=== PATIENT | male | born 1945 | race African-American/Black ===

== ENCOUNTER → 2017-02-10 | Outpatient (CLI) | payer MEDICARE, OTHER ==
[2014-07-20 11:00] VITALS: BP 139/75
--- NOTE | 2017-02-16 11:49 | SLEEP ---
DATE OF STUDY: 02/16/2017 ATTENDING PHYSICIAN: ____ Mathew. The patient is a 71-year-old who weighs 165 pounds with a BMI of 27. The patient's [place] score was 5. Sleep study was performed to rule out JANIS. This was a diagnostic study. During the night study, the patient spent 427 minutes in bed and slept for 197 minutes with a low sleep efficiency of 46%. Sleep latency was 25 minutes with an absent REM sleep. Overall, sleep architecture showed increased stage 1 and stage 2 sleep, normal slow wave and absent REM sleep. During the night study, the patient had 9 obstructive apneas. No mixed or central apneas. There were 43 hypopneas. The patient's apnea hypopnea index was 18 per hour. No REM sleep was observed. Supine AHI was also 18 per hour. Review of nocturnal oximetry study revealed a mean oxygen saturation of 96% with the lowest of 90%. PLMS were seen at index of 16 per hour, but only 1 per hour caused EEG arousals. EKG monitoring revealed average heart rate of 53 beats per minute, no sustained arrhythmias were observed. Due to poor sleep efficiency, split night protocol was not attempted. IMPRESSION: 1. Moderate sleep apnea-hypopnea syndrome with an AHI of 18 per hour. Absence of REM sleep can underestimate the severity of sleep apnea. 2. Reduced sleep efficiency of 46% due to sleep maintenance insomnia. 3. Mild to moderate periodic limb movements at an index of 16 per hour, but only 1 per hour caused EEG arousals. This does not need to be treated unless the patient has symptoms of restless legs during the day. RECOMMENDATIONS: 1. The patient should return to the sleep lab for CPAP titration. 2. Once optimum CPAP pressure is achieved, then follow up in 4-6 weeks to assess compliance with CPAP and to document clinical improvement. 3. 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 4. Caution regarding driving until the patient's sleep apnea is treated with the above recommendations. 5. If the patient's insomnia persists despite effective use of CPAP, then it should be further evaluated according to the etiology. JERAD GUTIERREZ MD DR: MERYL/katharine JOB#: [id number] / [id number]
== END | disposition home or self-care (01) ==
LOC: SLPLAB 18:26
PROVIDERS: ATTEND Family Medicine
DX: G47.33 Obstructive sleep apnea (adult) (pediatric) (principal)
CPT/HCPCS: 95810

== ENCOUNTER 2018-01-02 15:43 | Inpatient (IN) | payer MEDICARE, OTHER ==
[2018-01-02 17:41] LABS: ADD MAN DIFF? NO
[2018-01-02 17:43] LABS: BASO % 1 % (0-3); EOS # 0.3 x10^3/uL (0.0-0.7); EOS % 7 % (0-3); HEMATOCRIT 27.1 % (39.0-53.0); HEMOGLOBIN 9.1 g/dL (13.0-17.5); LYMPH % 23 % (24-48); MEAN CORPUSCULAR HEMOGLOBIN 32 pg (25-35); MEAN CORPUSCULAR HGB CONC 33 g/dL (31-37); MEAN CORPUSCULAR VOLUME 97 fL (79-100); MONO # 0.6 x10^3/uL (0.0-1.1); MONO % 15 % (0-9); NEUT # 2.3 x10^3uL (1.8-7.7); NEUT % 54 % (31-73); PLATELET COUNT 163 x10^3/uL (140-400); RED BLOOD COUNT 2.81 x10^6/uL (4.30-5.70); WHITE BLOOD COUNT 4.2 x10^3/uL (4.0-11.0)
[2018-01-02 17:52] LABS: INR 1.1 (0.8-1.1); PARTIAL THROMBOPLASTIN TIME 27 SEC (24-38); PROTHROMBIN TIME PATIENT 13.7 SEC (11.7-14.0)
[2018-01-02 18:06] LABS: ANION GAP 6 (6-14); BLOOD UREA NITROGEN 17 mg/dL (8-26); BUN/CREATININE RATIO 17 (6-20); CALCIUM 8.7 mg/dL (8.5-10.1); CARBON DIOXIDE 30 mmol/L (21-32); CHLORIDE 103 mmol/L (98-107); GFR 88.6; GLUCOSE 96 mg/dL (70-99); POTASSIUM 5.2 mmol/L (3.5-5.1); SODIUM 139 mmol/L (136-145)
[2018-01-02 18:11] LABS: ALBUMIN 3.4 g/dL (3.4-5.0); ALBUMIN/GLOBULIN RATIO 0.9 (1.0-1.7); ALK PHOS 149 U/L (46-116); ALT (SGPT) 39 U/L (16-63); AST (SGOT) 27 U/L (15-37); MAGNESIUM 1.7 mg/dL (1.8-2.4)
[2018-01-02] MEDS: IV NORMAL SALINE 500ML BAG 500 ML IV (18:12)
[2018-01-02 18:13] LABS: TROPONINI 0.018 ng/mL (0.000-0.055)
[2018-01-02 18:15] LABS: TOTAL BILIRUBIN < 0.1 mg/dL (0.2-1.0)
[2018-01-02 18:19] LABS: NT-PRO BNP 361 pg/mL (0-124)
[2018-01-02 18:20] LABS: BILIRUBIN,URINE NEGATIVE (NEG); CLARITY,URINE CLEAR; COLOR,URINE YELLOW; GLUCOSE,URINE NEGATIVE (NEG); NITRITE,URINE NEGATIVE (NEG); PH,URINE 7.5; PROTEIN,URINE NEGATIVE (NEG-TRACE); UROBILINOGEN,URINE 0.2 mg/dL (0.2 mg/dL)
[2018-01-02 18:22] LABS: THYROID STIM HORMONE (TSH) 2.915 uIU/mL (0.358-3.74)
[2018-01-02 18:25] LABS: BACTERIA,URINE 0 /HPF (0-FEW); RBC,URINE OCC /HPF (0-2); SQUAMOUS EPITHELIAL CELL,UR FEW /LPF; WBC,URINE OCC /HPF (0-4)
[2018-01-02] MEDS ORDERED: ONDANSETRON PF 4 MG/2 ML VIAL. IV (19:45)
[2018-01-02] MEDS ORDERED: ACETAMINOPHEN 325 MG TABLET. PO (19:45)
[2018-01-02] MEDS ORDERED: GABAPENTIN 300 MG CAPSULE. PO ×2 (21:00→21:30)
[2018-01-02] MEDS ORDERED: LACTULOSE 20 GM/30 ML SOLUTION. PO (21:15)
[2018-01-02] MEDS ORDERED: BISACODYL 10 MG SUPP.RECT. RC (21:15)
[2018-01-02] MEDS ORDERED: oxyCODONE IR 5 MG TABLET PO (21:15)
[2018-01-02] MEDS ORDERED: NON FORMULARY ITEM (Sildenafil Citrate (Viagra) 1 TAB) PO (21:15)
[2018-01-02] MEDS: MIRTAZAPINE 15 MG TABLET PO (22:11)
[2018-01-02] MEDS: TERAZOSIN 1 MG CAPSULE. PO (22:12)
[2018-01-02] MEDS: METOPROLOL TART IMMED RELEASE 25 MG TABLET. PO (22:13)
[2018-01-02] MEDS: oxyCODONE IR 5 MG TABLET PO (22:14)
[2018-01-02] MEDS: diazePAM 5 MG TABLET PO (22:14)
[2018-01-02] MEDS: ZOLPIDEM 5 MG TABLET. PO (22:14)
[2018-01-02] MEDS: HALOPERIDOL 2 MG TABLET. PO (22:15)
[2018-01-02] MEDS: BACLOFEN 10 MG TABLET. PO (22:16)
[2018-01-02] MEDS: GABAPENTIN 300 MG CAPSULE. PO ×2 (22:44→23:07)
[2018-01-02] MEDS: NON FORMULARY ITEM (Gabapentin 600 MG) PO (22:49)
[2018-01-02] MEDS: PHENYTOIN 100 MG/4 ML ORAL.SUSP. PO (23:08)
[2018-01-03] MEDS ORDERED: ACETAMINOPHEN 500 MG TABLET PO
[2018-01-03] MEDS ORDERED: INFLUENZA VAX SCREEN BY RX. MC (01:15)
[2018-01-03] MEDS ORDERED: PNEUMOCOCCAL VAX SCREEN BY RX. MC (01:15)
[2018-01-03 07:00] LABS: ADD MAN DIFF? NO
[2018-01-03 07:05] LABS: BASO % 1 % (0-3); EOS # 0.3 x10^3/uL (0.0-0.7); EOS % 8 % (0-3); HEMATOCRIT 29.8 % (39.0-53.0); HEMOGLOBIN 10.1 g/dL (13.0-17.5); LYMPH % 29 % (24-48); MEAN CORPUSCULAR HEMOGLOBIN 33 pg (25-35); MEAN CORPUSCULAR HGB CONC 34 g/dL (31-37); MEAN CORPUSCULAR VOLUME 97 fL (79-100); MONO # 0.5 x10^3/uL (0.0-1.1); MONO % 13 % (0-9); NEUT # 1.8 x10^3uL (1.8-7.7); NEUT % 49 % (31-73); PLATELET COUNT 174 x10^3/uL (140-400); RED BLOOD COUNT 3.07 x10^6/uL (4.30-5.70); RED CELL DISTRIBUTION WIDTH 13.8 % (11.5-14.5); WHITE BLOOD COUNT 3.7 x10^3/uL (4.0-11.0)
[2018-01-03 07:19] LABS: ANION GAP 6 (6-14); BLOOD UREA NITROGEN 14 mg/dL (8-26); CALCIUM 8.8 mg/dL (8.5-10.1); CARBON DIOXIDE 31 mmol/L (21-32); CHLORIDE 107 mmol/L (98-107); CREATININE 0.9 mg/dL (0.7-1.3); GFR 100.1; GLUCOSE 76 mg/dL (70-99); POTASSIUM 4.3 mmol/L (3.5-5.1); SODIUM 144 mmol/L (136-145)
[2018-01-03] MEDS: PHENYTOIN 100 MG/4 ML ORAL.SUSP. PO ×3 (09:00→20:57)
[2018-01-03] MEDS: FLUTICASONE 50MCG/NASAL SPRAY 16GM BOTTLE. NS (09:00)
[2018-01-03] MEDS: oxyCODONE IR 5 MG TABLET PO (09:00)
[2018-01-03] MEDS ORDERED: GABAPENTIN 300 MG CAPSULE. PO ×3 (09:00)
[2018-01-03] MEDS: CETIRIZINE HCL 10 MG TABLET. PO (09:00)
[2018-01-03] MEDS ORDERED: BISACODYL 5 MG TABLET.DR. PO (10:00)
[2018-01-03] MEDS ORDERED: MAG HYDROX/ALUMINUM HYD/SIMETH 30 ML ORAL.SUSP PO (10:00)
[2018-01-03] MEDS ORDERED: oxyCODONE IR 5 MG TABLET PO (10:15)
[2018-01-03] MEDS: SENNOSIDES/DOCUSATE 8.6/50MG TABLET. PO ×2 (10:44→20:58)
[2018-01-03] MEDS: CITALOPRAM 20 MG TABLET. PO ×2 (10:44→11:00)
[2018-01-03] MEDS: PYRIDOXINE 50 MG TABLET. PO ×3 (10:45→20:53)
[2018-01-03] MEDS: CHOLECALCIFEROL (VITAMIN D3) 1,000 UNIT TABLET PO (10:45)
[2018-01-03] MEDS: GABAPENTIN 300 MG CAPSULE. PO ×4 (10:45→20:59)
[2018-01-03] MEDS: CELECOXIB 200 MG CAPSULE. PO (10:45)
[2018-01-03] MEDS: CYANOCOBALAMIN (VITAMIN B-12) 1,000 MCG TABLET. PO (10:46)
[2018-01-03] MEDS: BACLOFEN 10 MG TABLET. PO ×3 (10:46→20:54)
[2018-01-03] MEDS: LINACLOTIDE 145 MCG CAPSULE. PO ×2 (10:46→11:00)
[2018-01-03] MEDS: FERROUS SULFATE 325 MG TABLET. PO ×2 (10:46→20:54)
[2018-01-03] MEDS: PANTOPRAZOLE 40 MG TABLET.DR. PO (10:46)
[2018-01-03] MEDS: diazePAM 5 MG TABLET PO ×2 (10:47→20:52)
[2018-01-03] MEDS: amLODIPine BESYLATE 5 MG TABLET PO (10:48)
[2018-01-03] MEDS: METOPROLOL TART IMMED RELEASE 25 MG TABLET. PO ×2 (10:48→20:58)
[2018-01-03] MEDS: POLYETHYLENE GLYCOL 3350 17 GM PACKET. PO (10:49)
[2018-01-03 10:50] LABS: MAGNESIUM 1.7 mg/dL (1.8-2.4)
[2018-01-03] MEDS: ACETAMINOPHEN 325 MG TABLET. PO ×2 (10:58→21:01)
[2018-01-03 11:52] LABS: VITAMIN-B12 1554 pg/mL (247-911)
[2018-01-03] MEDS: DIPYRIDAMOLE 25 MG TABLET. PO (14:41)
[2018-01-03] MEDS: FLU VACC QS2017-18 (36MOS+)/PF 0.5 ML SYRINGE. VAX IM (14:44)
[2018-01-03] MEDS: PNEUMOC CONJ VACC 23-VALENT 0.5 ML VIAL. VAX IM (14:46)
[2018-01-03 18:02] LABS: AMPHETAMINE/METHAMPHETAMINE NEG (NEG); BARBITURATES NEG (NEG); BENZODIAZEPINES POS (NEG); CANNABINOIDS NEG (NEG); COCAINE NEG (NEG); ETHANOL, URINE NEG (NEG); METHADONE NEG (NEG); OPIATES NEG (NEG); PHENCYCLIDINE NEG (NEG)
[2018-01-03] MEDS: MIRTAZAPINE 15 MG TABLET PO (20:52)
[2018-01-03] MEDS: HALOPERIDOL 2 MG TABLET. PO (20:52)
[2018-01-03] MEDS: ACETAMINOPHEN 500 MG TABLET PO (20:53)
[2018-01-03] MEDS: TERAZOSIN 1 MG CAPSULE. PO (20:53)
[2018-01-04 04:49] LABS: ADD MAN DIFF? NO
[2018-01-04 05:05] LABS: BASO % 1 % (0-3); EOS # 0.3 x10^3/uL (0.0-0.7); EOS % 7 % (0-3); HEMATOCRIT 26.6 % (39.0-53.0); HEMOGLOBIN 9.1 g/dL (13.0-17.5); LYMPH % 26 % (24-48); MEAN CORPUSCULAR HEMOGLOBIN 33 pg (25-35); MEAN CORPUSCULAR HGB CONC 34 g/dL (31-37); MEAN CORPUSCULAR VOLUME 95 fL (79-100); MONO # 0.5 x10^3/uL (0.0-1.1); MONO % 14 % (0-9); NEUT % 52 % (31-73); PLATELET COUNT 156 x10^3/uL (140-400); RED BLOOD COUNT 2.79 x10^6/uL (4.30-5.70); RED CELL DISTRIBUTION WIDTH 14.2 % (11.5-14.5); WHITE BLOOD COUNT 3.8 x10^3/uL (4.0-11.0)
[2018-01-04 05:37] LABS: PHENY 4.2 mcg/mL (10.0-20.0)
[2018-01-04 05:59] LABS: ALBUMIN 3.2 g/dL (3.4-5.0); ALBUMIN/GLOBULIN RATIO 0.8 (1.0-1.7); ALK PHOS 156 U/L (46-116); ALT (SGPT) 32 U/L (16-63); ANION GAP 7 (6-14); AST (SGOT) 16 U/L (15-37); BLOOD UREA NITROGEN 15 mg/dL (8-26); BUN/CREATININE RATIO 17 (6-20); CALCIUM 8.9 mg/dL (8.5-10.1); CARBON DIOXIDE 27 mmol/L (21-32); CHLORIDE 106 mmol/L (98-107); CREATININE 0.9 mg/dL (0.7-1.3); GFR 100.1; GLUCOSE 76 mg/dL (70-99); MAGNESIUM 1.7 mg/dL (1.8-2.4); POTASSIUM 4.1 mmol/L (3.5-5.1); SODIUM 140 mmol/L (136-145); TOTAL BILIRUBIN 0.2 mg/dL (0.2-1.0)
[2018-01-04] MEDS ORDERED: GABAPENTIN 300 MG CAPSULE. PO ×2 (09:00)
[2018-01-04] MEDS: DIPYRIDAMOLE 25 MG TABLET. PO (10:19)
[2018-01-04] MEDS: CITALOPRAM 20 MG TABLET. PO (10:20)
[2018-01-04] MEDS: SENNOSIDES/DOCUSATE 8.6/50MG TABLET. PO (10:20)
[2018-01-04] MEDS: ACETAMINOPHEN 325 MG TABLET. PO (10:20)
[2018-01-04] MEDS: FERROUS SULFATE 325 MG TABLET. PO (10:21)
[2018-01-04] MEDS: CYANOCOBALAMIN (VITAMIN B-12) 1,000 MCG TABLET. PO (10:21)
[2018-01-04] MEDS: PYRIDOXINE 50 MG TABLET. PO ×2 (10:21→16:33)
[2018-01-04] MEDS: PANTOPRAZOLE 40 MG TABLET.DR. PO (10:22)
[2018-01-04] MEDS: BACLOFEN 10 MG TABLET. PO ×2 (10:22→16:33)
[2018-01-04] MEDS: METOPROLOL TART IMMED RELEASE 25 MG TABLET. PO (10:22)
[2018-01-04] MEDS: amLODIPine BESYLATE 5 MG TABLET PO (10:22)
[2018-01-04] MEDS: diazePAM 5 MG TABLET PO (10:22)
[2018-01-04] MEDS: LINACLOTIDE 145 MCG CAPSULE. PO (10:22)
[2018-01-04] MEDS: GABAPENTIN 300 MG CAPSULE. PO ×2 (10:23→16:34)
[2018-01-04] MEDS: CELECOXIB 200 MG CAPSULE. PO (10:23)
[2018-01-04] MEDS: POLYETHYLENE GLYCOL 3350 17 GM PACKET. PO (10:23)
[2018-01-04] MEDS: FLUTICASONE 50MCG/NASAL SPRAY 16GM BOTTLE. NS (10:24)
[2018-01-04] MEDS: CHOLECALCIFEROL (VITAMIN D3) 1,000 UNIT TABLET PO (10:37)
[2018-01-04] MEDS: PHENYTOIN 100 MG/4 ML ORAL.SUSP. PO (10:38)
[2018-01-04] MEDS: MAGNESIUM OXIDE 400 MG TABLET PO (10:38)
[2018-01-04] MEDS: CEPHALEXIN 250 MG CAPSULE. PO ×3 (10:39→17:00)
[2018-01-04] MEDS ORDERED: LACTOBACILLUS RHAMNOSUS GG 1 CAPSULE. PO (21:00)
[2018-01-04] MEDS ORDERED: CETIRIZINE HCL 10 MG TABLET. PO (21:00)
== END 2018-01-04 18:06 | disposition home or self-care (01) | DRG 640 ==
LOC: ER 15:43 → 6 SOUTH 18:43
DX: E87.5 Hyperkalemia (principal); G93.41 Metabolic encephalopathy; F33.3 Major depressive disorder, recurrent, severe with psychotic symptoms; E11.42 Type 2 diabetes mellitus with diabetic polyneuropathy; D64.9 Anemia, unspecified; E83.42 Hypomagnesemia; J01.90 Acute sinusitis, unspecified; I10 Essential (primary) hypertension; G40.909 Epilepsy, unspecified, not intractable, without status epilepticus; E55.9 Vitamin D deficiency, unspecified; N40.0 Benign prostatic hyperplasia without lower urinary tract symptoms; G89.29 Other chronic pain; K21.9 Gastro-esophageal reflux disease without esophagitis; M17.12 Unilateral primary osteoarthritis, left knee; M25.78 Osteophyte, vertebrae; M50.30 Other cervical disc degeneration, unspecified cervical region; M19.90 Unspecified osteoarthritis, unspecified site; Z86.73 Personal history of transient ischemic attack (TIA), and cerebral infarction without residual deficits; K59.00 Constipation, unspecified; Z96.649 Presence of unspecified artificial hip joint; F41.9 Anxiety disorder, unspecified; G47.00 Insomnia, unspecified; Z87.01 Personal history of pneumonia (recurrent); Z79.4 Long term (current) use of insulin
CPT/HCPCS: 36415; 70450; 71045; 72125; 80048; 80053; 80185; 80307; 81001; 82306; 82607; 83735; 83880; 84443; 84484; 85025; 85610; 85730; 90686; 90732; 93005; 95816; 97161-GP; 97165-GO; J7040

== ENCOUNTER 2019-01-22 21:07 | Emergency (ER) | payer MEDICARE, OTHER ==
[~2019-01-22] VITALS: Ht 182.9 cm; Wt 79.4 kg
[~2019-01-22 21:07] MED LIST: ACET325T9 PO; ACET500T68 PO; AMLO5TAB10 PO; BACL10TA PO; BISA10SU2 RC; CELE200C PO; CEPH250C PO; CETI10TA22 PO; CHOL10003 PO; CYAN10005 PO; DIAZ5TAB4 PO; DIPY25TA PO; ESCITALOPRAM OX10 MG PO; FERR325T14 PO; FLUT9.9S NS; GABA300C18 PO; HALO2TAB PO; LACT20SO PO; LINZESS145 MCG PO; MAG-27 PO; MAGN400T22 PO; MELA3TAB2 PO; METO25TA4 PO; MIRT30TA3 PO; OMEP20CA10 PO; OXYC5CAP PO; PHENYTOIN; POLY255P11 PO; PYRI100T3 PO; SENN-37 PO; SILD50TA PO; TERA2CAP3 PO
[2019-01-22] MEDS ORDERED: DIPHTH,PERTUSS(ACELL),TET TOX 0.5 ML DISP.SYRIN. VAX IM ONE (22:30)
[2019-01-22] MEDS ORDERED: LIDOCAINE 1% PF 2 ML VIAL. INJ ONE (23:00)
[2019-01-22 23:48] VITALS: BP 136/71
--- NOTE | 2019-01-23 00:22 | RAD ---
CT head without contrast: Reason for examination: Unwitnessed fall. Comparison is made to previous study dated 01/02/2018. Axial images were obtained to the brain. No contrast was administered. Ventricular systems are symmetric and not abnormally dilated. No midline shift is seen. There is no evidence of intracranial hemorrhage. There is some encephalomalacia in the left frontal lobe and to a milder extent in the right frontal lobe. No other focal lesions are seen in the brain. No abnormalities are seen at the orbits. The paranasal sinuses show opacification of the left maxillary antrum and of mild fluid levels be calcified disease in the right maxillary antrum and near complete opacification of the ethmoid sinuses and mucosal disease bilaterally in the sphenoid sinuses. Mastoid air cells show some opacification of a few of the left mastoid air cells. No acute abnormality seen in the skull. IMPRESSION: Chronic encephalomalacia in the frontal lobes bilaterally, left greater than right. No acute intracranial abnormality seen. Pansinusitis. Opacification of a few left mastoid air cells. CT cervical spine without contrast: Helical images were obtained through the cervical spine from skull base through the thoracic apices with no contrast administered. Reconstruction was performed in sagittal and coronal planes. The C1 ring is intact. The odontoid process appears to be intact and normally centered between the lateral masses of C1. The vertebral bodies of the cervical spine are normally aligned anteriorly and posteriorly with no acute fracture or subluxation seen in the posterior elements show no acute abnormalities. There are however degenerative changes present with hypertrophic spurring from C2 through T1 and there is fusion at the C4-5 disc level and at the C6-7 disc level. Prevertebral soft tissues are normal. IMPRESSION: Degenerative spondylosis with fusion at the C4-5 and C6-7 disc levels. No acute abnormality in the cervical spine. Exposure: One or more of the following individualized dose reduction techniques were utilized for this examination: 1. Automated exposure control 2. Adjustment of the mA and/or kV according to patient size 3. Use of iterative reconstruction technique. Electronically signed by: Jamila Kraft MD (01/23/2019 12:19 AM) [facility]
[2019-01-23] MEDS ORDERED: NEOMY/BACITR/POLYMYXIN OINT PACKET. TP ONE (01:00)
[2019-01-23] MEDS ORDERED: CEPH-264 PO (01:22)
--- NOTE | 2019-01-23 01:22 | PHYS DOC ---
Past Medical History Past Medical History: Anxiety, Hypertension, Schizophrenia Additional Past Medical Histor: CHRONIC PAIN, PSYCHOSIS, INSOMNIA Past Surgical History: No Surgical History Additional Past Surgical Histo: "ABD SGRY" Alcohol Use: None Drug Use: None Adult General Chief Complaint Chief Complaint: MECHANICAL FALL HPI HPI Patient is a 73 year old AA male who presents to the ER via EMS with complaints of a laceration to the left side of his neck after [facility] EMS stated that nursing staff report the patient fell against a wall and a nail cut the side of his neck. The facility denies any LOC and reported that pt's neurological status is at baseline. Unable to obtain more history due to LOC. Review of Systems Review of Systems Integument: See HPI Neurologic: See HPI Current Medications Current Medications Current Medications Medications (Trade) Dose Ordered Sig/Mary Carmen Start Time Stop Time Status Last Admin Dose Admin Diphtheria/ Tetanus/Acell Pertussis (Boostrix) 0.5 ml ONCE ONCE 01/22/19 22:30 01/22/19 22:31 DC 01/22/19 23:36 0.5 ML Lidocaine HCl (Xylocaine-Mpf 1% 2ml Vial) 6 ml 1X ONCE 01/22/19 23:00 01/22/19 23:01 DC 01/22/19 23:35 6 ML Neomycin/ Polymyxin/ Bacitracin (Triple Antibiotic Ointment) 1 pkt 1X ONCE 01/23/19 01:00 01/23/19 01:01 Allergies Allergies Allergies Coded Allergies Type Severity Reaction Last Updated Verified diclofenac Allergy Intermediate 01/22/19 Yes hydrochlorothiazide Allergy Intermediate 01/22/19 Yes tuberculin, purified protein deriva Allergy Intermediate 07/17/18 Yes Physical Exam Physical Exam Constitutional: Well developed, well nourished, no acute distress, non-toxic appearance. [] HENT: Normocephalic, bilateral external ears normal, oropharynx moist, nose normal. [] Eyes: conjunctiva normal, no discharge. [] Neck: Normal range of motion, no tenderness, supple, no stridor. [] Lungs & Thorax: Respirations even and unlabored, no retractions, no respiratory distress Skin: Warm, dry, no erythema, no rash; lacerations noted to left side of neck the superior laceration measures 1 cm with no active bleeding, the inferior laceration is 4 cm bleeding controlled with pressure bandage. [] Extremities: No cyanosis, ROM intact Neurologic: Alert and oriented to normal, no focal deficits noted. [] Psychologic: Affect normal, judgement normal, mood normal. [] Current Patient Data Vital Signs Vital Signs Date Time Temp Pulse Resp B/P (MAP) Pulse Ox O2 Delivery O2 Flow Rate FiO2 01/22/19 23:48 61 19 99 01/22/19 21:17 96.7 142/83 (102) Room Air 96.7 EKG EKG [] Radiology/Procedures Radiology/Procedures PROCEDURE: CT HEAD AND CERVICAL SPINE WO CT head without contrast: Reason for examination: Unwitnessed fall. Comparison is made to previous study dated 01/02/2018. Axial images were obtained to the brain. No contrast was administered. Ventricular systems are symmetric and not abnormally dilated. No midline shift is seen. There is no evidence of intracranial hemorrhage. There is some encephalomalacia in the left frontal lobe and to a milder extent in the right frontal lobe. No other focal lesions are seen in the brain. No abnormalities are seen at the orbits. The paranasal sinuses show opacification of the left maxillary antrum and of mild fluid levels be calcified disease in the right maxillary antrum and near complete opacification of the ethmoid sinuses and mucosal disease bilaterally in the sphenoid sinuses. Mastoid air cells show some opacification of a few of the left mastoid air cells. No acute abnormality seen in the skull. IMPRESSION: Chronic encephalomalacia in the frontal lobes bilaterally, left greater than right. No acute intracranial abnormality seen. Pansinusitis. Opacification of a few left mastoid air cells. CT cervical spine without contrast: Helical images were obtained through the cervical spine from skull base through the thoracic apices with no contrast administered. Reconstruction was performed in sagittal and coronal planes. The C1 ring is intact. The odontoid process appears to be intact and normally centered between the lateral masses of C1. The vertebral bodies of the cervical spine are normally aligned anteriorly and posteriorly with no acute fracture or subluxation seen in the posterior elements show no acute abnormalities. There are however degenerative changes present with hypertrophic spurring from C2 through T1 and there is fusion at the C4-5 disc level and at the C6-7 disc level. Prevertebral soft tissues are normal. IMPRESSION: Degenerative spondylosis with fusion at the C4-5 and C6-7 disc levels. No acute abnormality in the cervical spine.[] Laceration Repair by me: #1 superior laceration Anesthesia: 1% lidocaine locally 2 ml Location: left side of neck Tendon/Joint/Nerves: No injury Foreign body: None detected after copious irrigation and exploration Technique: 2 Simple Interrupted Sutures with 5-0 ethilon Complexity: No subcutaneous sutures/mucosal repair/edge excision Post Closure Length: 1.5 cm Laceration Repair by me: #2 inferior laceration Anesthesia: 1% lidocaine locally 4 ml Location: left side of neck Tendon/Joint/Nerves: No injury Foreign body: None detected after copious irrigation and exploration Technique: 2 simple interrupted internal sutures with 4-0 vicryl, 9 Simple Interrupted Sutures with 5-0 Ethilon Complexity: No subcutaneous sutures/mucosal repair/edge excision Post Closure Length: 4 cm Patient's bleeding was easily controlled in the department and there is no indication of anemia. No evidence of compartment syndrome, neurologic injury, vascular injury, open joint, tendon laceration, or foreign body. Patient is appropriate for outpatient follow up. 48 hour wound check. Scar minimization instructions given. Course & Med Decision Making Course & Med Decision Making Pertinent Labs and Imaging studies reviewed. (See chart for details) dx: fall with closed head injury, laceration to left side of neck Wound care as described above. CT head and neck negative for any acute findings. PT's tetanus status was updated. Prescription for keflex. 48 hour wound check recommended. Sutures out in 10 days. Tylenol or ibuprofen as needed for pain. Return to the ER if symptoms worsen. [] Dragon Disclaimer Dragon Disclaimer This electronic medical record was generated, in whole or in part, using a voice recognition dictation system. Departure Departure Impression: Primary Impression: Closed head injury Additional Impressions: Laceration of neck without foreign body Need for Tdap vaccination Disposition: 01 HOME, SELF-CARE Condition: STABLE Referrals: MAXWELL RODRIGUEZ MD (PCP) Patient Instructions: Head Injury, Adult, [id number], Laceration Care, Adult , [id number], VIS, Tetanus, Diphtheria (Td); Tetanus, Diphtheria, Pertussis ( Tdap) - CDC Additional Instructions: Fill the prescription and use as directed. May take tylenol or ibuprofen as needed for pain. Follow the head injury precautions provided. Your CT of the head and neck was negative for any acute findings. Keep the laceration site clean and dry, apply clean bandage and antibiotic ointment to area twice daily and as needed, 48 hour wound recheck is recommended. Follow up with your primary care doctor or return to the ER in 7-10 days for suture removal. Return to the ER if symptoms worsen. Scripts Cephalexin (KEFLEX) 500 Mg Capsule 500 MG PO QID for 7 Days, #28 CAP 0 Refills Prov: HU MEJIA APRN 01/23/19 Problem Qualifiers Primary Impression: Closed head injury Encounter type: initial encounter Qualified Codes: S09.90XA - Unspecified injury of head, initial encounter Additional Impressions: Laceration of neck without foreign body Encounter type: initial encounter Qualified Codes: S11.91XA - Laceration without foreign body of unspecified part of neck, initial encounter HU MEJIA APRN Jan 23, 2019 01:22
== END 2019-01-23 02:49 | disposition home or self-care (01) ==
LOC: ER 21:07
DX: S11.91XA Laceration without foreign body of unspecified part of neck, initial encounter (principal); M47.812 Spondylosis without myelopathy or radiculopathy, cervical region; Z98.1 Arthrodesis status; I10 Essential (primary) hypertension; F20.9 Schizophrenia, unspecified; F41.9 Anxiety disorder, unspecified; G89.29 Other chronic pain; Z88.8 Allergy status to other drugs, medicaments and biological substances; W18.09XA Striking against other object with subsequent fall, initial encounter; Y93.89 Activity, other specified; Y92.89 Other specified places as the place of occurrence of the external cause; Y99.8 Other external cause status
CPT/HCPCS: 12002; 70450; 72125; 90471; 90715; 99284-25